=== PATIENT | female | born 1955 | race Caucasian/White ===

== ENCOUNTER 2017-04-21 17:40 | Inpatient (IN) | payer OTHER ==
[~2017-04-21] VITALS: Ht 152.4 cm; Wt 55.8 kg
--- NOTE | 2017-04-21 17:53 | NUR ---
PT IS UNABLE TO REMEMBER HER HOME MEDICATION, PT DENIES ANY MEDICAL HISTORY, PT DENIES ANY ALLERGIES. DR EDWARDS NOTIFIED.
--- NOTE | 2017-04-21 18:22 | NUR ---
PT IS IN ROOM #1A. DR EDWARDS EVALUATED THE PT.
[2017-04-21 18:36] LABS: BASOPHILS % (AUTO) 0.6 % (0.0-2.0); EOSINOPHILS % (AUTO) 0.7 % (0.0-7.0); HEMATOCRIT 35.8 % (37-47); HEMOGLOBIN 11.8 G/DL (12.0-16.0); LYMPHOCYTES # (AUTO) 1.9 K/UL (0.8-4.8); LYMPHOCYTES % (AUTO) 37.3 % (20.5-51.5); MEAN CORPUSCULAR HEMOGLOBIN 27.5 UUG (27.0-31.0); MEAN CORPUSCULAR HGB CONC 33 g/dL (32.0-37.0); MEAN CORPUSCULAR VOLUME 83.3 FL (81.0-99.0); MONOCYTES # (AUTO) 0.3 K/UL (0.1-1.30); MONOCYTES % (AUTO) 5.2 % (0.0-11.0); NEUTROPHILS # (AUTO) 2.9 K/UL (1.8-8.9); NEUTROPHILS % (AUTO) 56.2 % (38.5-71.5); PLATELET COUNT (AUTO) 238 K/UL (150-450); WHITE BLOOD COUNT (AUTO) 5.1 K/UL (4.0-11.2)
[2017-04-21 18:47] LABS: CARBON DIOXIDE 29 mmol/L (21-32); CHLORIDE 102 mmol/L (98-107); CREATININE 0.8 mg/dL (0.6-1.3); GLUCOSE 89 mg/dL (74-106); POTASSIUM 3.6 mmol/L (3.5-5.1); UREA NITROGEN, BLOOD 9 mg/dL (7-18)
[2017-04-21 18:52] LABS: ALANINE AMINOTRANSFERASE 16 U/L (14-59); ALKALINE PHOSPHATASE 71 U/L (50-136); ASPARTATE AMINOTRANSFERASE 18 U/L (15-37); BILIRUBIN,DIRECT 0.1 mg/dL (0.0-0.2); BILIRUBIN,TOTAL 0.4 mg/dL (0.2-1.0); TOTAL PROTEIN, SERUM 7.2 g/dL (6.4-8.2)
[2017-04-21 18:53] LABS: ACETAMINOPHEN < 2.0 ug/mL (10-30)
[2017-04-21 19:01] LABS: ETHANOL < 3 MG/DL (0-0)
[2017-04-21 19:02] LABS: THYROID STIMULATING HORMONE 1.468 mIU/mL (0.358-3.740)
[2017-04-21 19:38] LABS: *BLOOD, URINE NEGATIVE (NEGATIVE); *COLOR,URINE DARK YELLOW (YELLOW); *KETONES,URINE TRACE (NEGATIVE); *PROTEIN,URINE TRACE (NEGATIVE); LEUKOCYTE ESTERASE ,URINE TRACE (NEGATIVE); NITRITE, URINE NEGATIVE (NEGATIVE); PH,URINE 5.5 (5.0-8.0); UGLUCOSE NEGATIVE (NEGATIVE)
[2017-04-21 19:47] LABS: *BILIRUBIN,URIN NEGATIVE (NEGATIVE); *CLARITY,URINE SLIGHTLY HAZY (CLEAR)
[2017-04-21 19:49] LABS: MUCUS,URINE MANY /LPF (0-FEW); SQUAMOUS EPITHELIAL CELL,UR FEW /HPF (NONE SEEN)
[2017-04-21 20:11] LABS: *AMPHETAMINE, URINE NEGATIVE (NEGATIVE); *BARBITURATE, URINE NEGATIVE (NEGATIVE); *CANNABINOID, URINE NEGATIVE (NEGATIVE); *COCCAINE, URINE NEGATIVE (NEGATIVE); *OPIATE, URINE NEGATIVE (NEGATIVE); *PHENCYCLIDINE SCREEN,URINE NEGATIVE (NEGATIVE)
--- NOTE | 2017-04-21 20:43 | NUR ---
Pt. admitted to Telemetry , under care of Juen SANTOS. Dx: Altered Mental Status Belongs List completed.
[2017-04-21 21:04] VITALS: BP 119/86
[2017-04-21] MEDS ORDERED: ACETAMINOPHEN 325 MG TABLET PO PRN (21:15)
[2017-04-21] MEDS ORDERED: Z GUARD REMEDY PASTE 57 GM TUBE TOP PRN (21:15)
[2017-04-21] MEDS ORDERED: IV NS 1000 ML 1,000 ML IV PRN (21:15)
[2017-04-21] MEDS ORDERED: MAGNESIUM HYDROXIDE 30 ML LIQUID UDC PO PRN (21:15)
[2017-04-21] MEDS ORDERED: ONDANSETRON 4 MG/2 ML VIAL IV PRN (21:15)
--- NOTE | 2017-04-21 21:44 | NUR ---
Patient refuses to be admitted into this facility. Education provided of risks, benefits, and need for hospital observation for primary diagnosis. Patient continues to refuse admission. She insists that she does not need to stay nor does she want to stay stating, "I understand your concern, but I just know I'm fine. Nothing is going to happen to me." Patient is of sound mind and is able to make coherent decisions I have called her housing facility, [facility] and spoke with Johnna to notify of patient's decision to leave against medical advice. Patient has also spoke with the [facility] and has made arrangements with them after leaving the hospital. After discussion of benefits of hospital admission and observation versus risks of leaving against medical advice, patient still refuses admission and has decided to leave hospital. AMA papers signed and placed in chart.
[2017-04-22] MEDS ORDERED: PANTOPRAZOLE SODIUM 40 MG TABLET.DR PO SCH (07:00)
== END 2017-04-21 22:00 | disposition left against medical advice (07) | DRG 948 ==
LOC: ER 17:44 → TELE 20:40
PROVIDERS: ADMIT Nurse Practitioner Acute Care; ATTEND Nurse Practitioner Acute Care
DX: R41.82 Altered mental status, unspecified (principal); F19.10 Other psychoactive substance abuse, uncomplicated
CPT/HCPCS: 36415; 70030-TC; 70450; 71010; 80307; 83605; 84443; 85025; 85730; 87040; 87086; 93005; G0480; G0480-TC